=== PATIENT | female | born 1995 | race Caucasian/White ===

== ENCOUNTER 2021-10-23 12:46 | Emergency (ER) | payer MEDICAID ==
[~2021-10-23] VITALS: Ht 154.9 cm; Wt 71.7 kg
[2021-10-23] MEDS ORDERED: AMOXICILLIN 50500 MG PO (13:03)
[2021-10-23 13:11] VITALS: BP 112/70
== END 2021-10-23 13:12 | disposition home or self-care (01) ==
LOC: M.ERS 12:46
DX: K08.89 Other specified disorders of teeth and supporting structures (principal); Z88.6 Allergy status to analgesic agent

== ENCOUNTER 2021-11-07 11:06 | Emergency (ER) | payer MEDICAID ==
[~2021-11-07] VITALS: Ht 154.9 cm; Wt 72.6 kg
[~2021-11-07 11:06] MED LIST: AMOXICILLIN 50500 MG PO
[2021-11-07] MEDS ORDERED: COLACE100 MG PO (14:00)
[2021-11-07] MEDS ORDERED: ANUSOL-HC30 GM TOP (14:00)
[2021-11-07 14:15] VITALS: BP 153/82
== END 2021-11-07 14:16 | disposition home or self-care (01) ==
LOC: M.ERS 11:06
DX: K64.4 Residual hemorrhoidal skin tags (principal); R11.10 Vomiting, unspecified; Z88.8 Allergy status to other drugs, medicaments and biological substances